=== PATIENT | female | born 1965 | race African-American/Black ===

== ENCOUNTER 2021-02-14 12:16 | Emergency (ER) | payer OTHER ==
[2021-02-14 12:46] VITALS: TEMP 98.2; BMI 30.2
[2021-02-14] MEDS ORDERED: HYDROCHLOROTHIAZIDE 25 MG TABLET (FP) PO ONE (13:43)
[2021-02-14 14:46] VITALS: BP 179/80; PULSE 90
== END 2021-02-14 15:00 | disposition home or self-care (01) ==
LOC: JER 12:16
DX: I10 Essential (primary) hypertension (principal)
CPT/HCPCS: 93005; 93010; 99281-25